=== PATIENT | male | born 1950 | race African-American/Black ===

== ENCOUNTER → 2017-02-09 | Outpatient (CLI) | payer BC, OTHER ==
[~2017-02-09] MED LIST: ALTACE10 MG PO; COREG6.25 MG PO; HYDROCODONE-AP1 EAC6 PO; K-DUR10 MEQ PO; LASIX 40 MG TAB40 M2 PO; NEURONTIN 300300 M1 PO; NOVOLOG100 UNIT/1 SQ; PRILOSEC20 MG PO; PROAIR HFA8.5 GM INH; SIMVASTATIN40 MG PO
== END ==
LOC: CAT 12:49
DX: R91.1 Solitary pulmonary nodule (principal); E27.9 Disorder of adrenal gland, unspecified; I31.3 Pericardial effusion (noninflammatory)

== ENCOUNTER → 2017-02-25 | Outpatient (CLI) | payer BC, OTHER | LOC: PET 01:44 | DX: I31.3 Pericardial effusion (noninflammatory) (principal); E27.9 Disorder of adrenal gland, unspecified; R91.1 Solitary pulmonary nodule ==

== ENCOUNTER 2017-03-17 06:45 | Day surgery (SDC) | payer BC, OTHER ==
[~2017-03-17] VITALS: Ht 175.3 cm; Wt 83.9 kg
--- NOTE | ~2017-03-17 | CNG ---
[place] [address] CYTO-NONGYN REPORT PROCEDURE Name: AYAD BRADLEY Room #: DEP [facility].#: [id number] Admission: 03/17/17 Date of : 54 Discharge: 03/18/17 Report #: [id number] Path Case #: [id number] CYTOPATHOLOGY REPORT COLLECTION DATE: 03/17/2017 RECEIVED DATE: 03/18/2017 SUBMITTING PHYS: Dr. Ag Caro OTHER PHYS: Dr. Anthony Hay CLINICAL HISTORY: 66 yr old 1.4 cm Left lung nodule superior segment LLL, 3-7 cm adrenal mass, Left hilar adenopathy, para tracheal adenopathy. See also [id number]. PROCEDURE: A. Multiple passes performed by Dr. Caro yielding fluid. Two H and E slides, and 40 mL from needle rinsed in formalin were submitted to the lab. B. Multiple passes performed by Dr. Caro yielding fluid. Two H and E slides, and 50 mL from needle rinsed in formalin were submitted to the lab. C. Multiple passes performed by Dr. Caro yielding fluid. Two H and E slides, and 45 mL from needle rinsed in formalin were submitted to the lab. SPECIMEN(S) RECEIVED: A.EBUS guided TBNA, lymph node 4R Pass 1 B.EBUS guided TBNA, lymph node 7R Pass 1 C.EBUS guided TBNA, lymph node 11L Pass 1 D. Bronchial brushings, JIMENA E. Bronchial brush rinse, JIMENA F.Bronchial wash, NOS * * * * * * * * * * * * FINAL DIAGNOSIS: A. Lymph node, 4R, EBUS guided TBNA: SCANT MARKEDLY ATYPICAL EPITHELIAL CELLS IDENTIFIED. -Lymphoid material identified compatible with aspiration of a lymph node. - Reactive bronchial epithelial cells present. B. Lymph node 7R, EBUS guided TBNA: SCANT MARKEDLY ATYPICAL EPITHELIAL CELLS IDENTIFIED. - Lymphoid material identified compatible with aspiration of a lymph node. - Reactive bronchial epithelial cells present. C. Lymph node 11L, EBUS guided TBNA: SCANT MARKEDLY ATYPICAL EPITHELIAL CELLS IDENTIFIED. - Lymphoid material identified compatible with aspiration of a lymph node. - Reactive bronchial epithelial cells present. D. Lung, JIMENA, Bronchial brushings: SHEETS OF MARKEDLY ATYPICAL EPITHELIAL CELLS IDENTIFIED. -Numerous [address] [place] [address] CYTO-NONGYN REPORT PROCEDURE Name: AYAD BRADLEY Room #: DEP [facility].#: [id number] Admission: 03/17/17 Date of : 54 Discharge: 03/18/17 Report #: [id number] Path Case #: [id number] sheets of benign bronchial epithelial cells present. E. Lung, JIMENA, Bronchial brush rinse: No malignant epithelial cells identified. -Few reactive bronchial epithelial cells and groups of lymphocytes. F. Lung, NOS, Bronchial wash: No malignant epithelial cells identified. - Few reactive bronchial epithelial cells and numerous alveolar macrophages. COMMENT: Groups of atypical cells identified show enlarged nuclei, cytomegaly, clumped chromatin and overlapping. The cells are; however, suspicious of a partially sampled malignancy. The differential diagnosis includes reactive changes in an inflammatory background. The scant nature of these cells precludes a definite diagnosis. [place]: Dr. Toby Roche. (Parts A, B, C and D only) The concurrent bronchial biopsy tissue [id number] showed benign bronchial tissue. Please see separate report for details. (IUV; 03/19/17) PATHOLOGIST: Marsha Waterman M.D. REPORT ELECTRONICALLY SIGNED BY: Marsha Waterman M.D. DATE/TIME: 03/19/2017 14:20 * * * * * * * * * * * * GROSS PATHOLOGY: A. EBUS guided TBNA, lymph node 4R Pass 1: The specimen is labeled "Ayad Bradley" and consists of two H and E slides. Forty mL of cloudy brown fluid in formalin from the needle rinse is also submitted and a cell block only was prepared from this material. B. EBUS guided TBNA, lymph node 7R Passes 1 : The specimen is labeled "Ayad Bradley" and consists of two H and E slides. Fifty mL of cloudy fluid in formalin from the needle rinse is also submitted and a cell block only was prepared from this material. C. EBUS guided TBNA, lymph node 11L Pass 1: The specimen is labeled "Ayad Bradley" and consists of two H and E slides. Forty-five mL of cloudy fluid in formalin from the needle rinse is also submitted and a cell block only was prepared from this material. D. Bronchial brushings, JIMENA: The specimen is labeled "Ayad Bardley" and consists of four fixed slides. E. Bronchial brush rinse, JIMENA: The specimen is labeled "Ayad Bradley" and consists of a brush tip in fixative. One ThinPrep slide was prepared. F. Bronchial wash, NOS: The specimen is submitted unfixed, labeled "Ayad Bradley". Received by the Cytology Department is five mL of cloudy pink fluid. One ThinPrep slide was prepared. (clt 03.18.2017) IMMEDIATE EVALUATION: [address] [address] CYTO-NONGYN REPORT PROCEDURE Name: AYAD BRADLEY Room #: DEP [facility].#: [id number] Admission: 03/17/17 Date of : 54 Discharge: 03/18/17 Report #: [id number] Path Case #: [id number] A. Lymph node 4R: Per Dr. Waterman: Few groups of atypical epithelial cells, rare lymphoid tangles, bronchial epithelial cells and cartilage. B. Lymph node 7R: Per Dr. Waterman: Groups of markedly atypical cells; few lymphoid tangles present. C. Lymph node 11L: Per Dr. Waterman: Markedly atypical cells and lymphoid tangles. Professional services performed under supervision of [facility] Enrobing Machine Operator at [address] [place], [place] [address] , [place] [address]. SHEET ROCK LAYER(S): HALINA Bradshaw([facility]) INITIAL CPT CODE(S): A; 49495, 71609, 19053 B; 97577, 63550, 47044 C; 40500, 48497, 82978 D; 53280 E; 74505 F; 56026 Professional services performed by [facility] at [place] [address], [place] [address] Technical services performed by [facility] at [address] [place] [address]., [address], [place] [address]. [address], [address] [place] [address] PHONE: [phone] DIRECTOR: Davide [place] M.D. * * * END OF REPORT * * *
--- NOTE | ~2017-03-17 | S ---
[facility] [place] [address] SURGICAL PATH RPT PROCEDURE Name: AYAD BRADLEY Room #: DEP [facility]..#: [id number] Admission: 03/17/17 Date of : 54 Discharge: 03/18/17 Report #: [id number] Path Case #: [id number] PATHOLOGY REPORT COLLECTION DATE: 03/17/2017 RECEIVED DATE: 03/18/2017 SUBMITTING PHYS: Dr. Ag Caro OTHER PHYS: Dr. Wilver Hay SPECIMEN(S) RECEIVED: A.Biopsy forceps JIMENA * * * * * * * * * * * * FINAL DIAGNOSIS: Lung, left upper lobe, bronchial biopsy: - Fragments of benign bronchial tissue with moderate dense chronic inflammation, as well as reactive changes. - No definite malignant epithelial cells identified. COMMENT: Co-review: Dr. Toby Roche. The concurrent EBUS guided FNA of the lymph nodes, as well as the bronchial brushings showed reactive atypical cells. Please refer to a separate report ([id number]). These findings were relayed to Dr. Ag Caro at approximately 10:40 am on 03/19/2017. (IUV:pit; 03/19/2017) PATHOLOGIST: Marsha Waterman M.D. REPORT ELECTRONICALLY SIGNED BY: Marsha Waterman M.D. DATE/TIME: 03/19/2017 15:21 * * * * * * * * * * * * GROSS PATHOLOGY: The specimen is received in formalin labeled "Ayad Bradley, bronch biopsy JIMENA". Received are multiple minute fragments of pale pitt soft tissue measuring 0.3 x 0.3 x 0.1 cm in aggregate dimensions. The specimen is filtered and entirely submitted in cassette A1. (CAA; 03/18/2017) CLINICAL HISTORY: Mass and lung INITIAL CPT CODE(S): A; [address] [facility] [address] [place] [address] SURGICAL PATH RPT PROCEDURE Name: AYAD BRADLEY Room #: DEP [facility].#: [id number] Admission: 03/17/17 Date of : 54 Discharge: 03/18/17 Report #: [id number] Path Case #: [id number] Professional services performed by [facility] at [facility] [address] [place] [address] Technical services performed by [facility] at [address] [place] [address], [facility] [address] [address]. [facility] [address] [place] [address] PHONE: [phone] DIRECTOR: Davide [place] M.D. * * * END OF REPORT * * *
--- NOTE | ~2017-03-17 | EKG ---
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: LINCOL[place] : 1950 Requested By: Ag Caro Order Number: [id number] MD: Juan Jose Galan Measurements Intervals [place] Rate: 90 P: 63 [place]: 138 QRS: 9 QRSD: 87 T: -20 QT: 355 QTc: 435 Interpretive Statements Sinus rhythm Abnormal R-wave progression, early transition Borderline repolarization abnormality Baseline wander in lead(s) V5,V6 Compared to ECG 01/05/2015 08:58:21 T-wave abnormality less prominent Early R-wave progression now noted Electronically Signed On 03-18-2017 8:21:32 CDT by Juan Jose Galan [email or web address] <ELECTRONICALLY SIGNED> By: Juan Jose Galan MD, [facility] 03/18/17 0821 1122 1122 Juan Jose Galan MD, [facility] /EPI
[2017-03-17 11:08] LABS: HEMATOCRIT 47.1 % (42.0-52.0); HEMOGLOBIN 15.4 gm/dL (14.0-18.0); MCH 29.1 pg (26.0-34.0); MCHC 32.6 g/dL (28.0-37.0); MCV 89.2 fL (80.0-100.0); RBC 5.29 mil/uL (4.50-6.00); RDW 13.6 % (10.5-14.5); WBC 7.2 thou/uL (4.0-11.0)
[2017-03-17 11:26] LABS: PROTIME 10.6 Seconds (9.3-11.4)
[2017-03-17] MEDS ORDERED: HUMALOG100 UNIT/2 (11:57)
[2017-03-17] MEDS ORDERED: SEROPHENE50 MG PO (11:58)
[2017-03-17] MEDS ORDERED: LYRICA 50 MG50 MG PO (11:59)
[2017-03-17] MEDS ORDERED: SPIRIVA18 MCG INH (12:00)
[2017-03-17 12:01] LABS: POTASSIUM 4.3 mmol/L (3.5-5.1)
[2017-03-17] MEDS ORDERED: PLAVIX 75 MG TA75 MG PO (12:01)
[2017-03-17 12:34] VITALS: BP 161/88
[2017-03-17 18:16] VITALS: BP 161/88
[2017-03-17 21:19] LABS: ABG SAMPLE TYPE ARTERIAL; BE(vivo) -0.3 mmol/L (-2 to +3); HCO3 23.9 mmol/L (22.0-26.0); LACTATE 1.57 mmol/L (0.5-2.0); O2(CT) 20.1 mL/dL (15.0-23.0); O2Hb 89.6 % (92.0-98.0); PCO2 37.8 mmHg (35.0-45.0); STICK SITE L.RADIAL; pH 7.418 (7.360-7.450); sO2 91.9 % (92.0-98.0)
[2017-03-17 22:04] LABS: HEMATOCRIT 47.9 % (42.0-52.0); HEMOGLOBIN 15.3 gm/dL (14.0-18.0); MCH 28.5 pg (26.0-34.0); MCHC 31.9 g/dL (28.0-37.0); MCV 89.2 fL (80.0-100.0); RBC 5.36 mil/uL (4.50-6.00); RDW 13.7 % (10.5-14.5); WBC 9.9 thou/uL (4.0-11.0)
[2017-03-17 22:26] LABS: ALBUMIN 3.6 g/dL (3.4-5.0); ALKALINE PHOSPHATASE 87 U/L (46-116); ANION GAP 9 mmol/L (7-16); BUN 12 mg/dL (7-18); CHLORIDE 101 mmol/L (98-107); CO2 26 mmol/L (21-32); DIRECT BILIRUBIN 0.2 mg/dL (<0.1-0.3); GLUCOSE 228 mg/dL (74-106); NT-PRO BRAIN NAT PEPTIDE 253 pg/mL (<300); POTASSIUM 4.1 mmol/L (3.5-5.1); SGOT 21 U/L (15-37); SGPT 23 U/L (30-65); SODIUM 136 mmol/L (136-145); TOTAL BILIRUBIN 0.5 mg/dL (<0.1-1.0); TOTAL PROTEIN 7.7 g/dL (6.4-8.2); TROPONIN-I < 0.04 ng/mL (<0.04-0.07)
[2017-03-17 23:58] VITALS: BP 152/87
[2017-03-18 03:21] VITALS: BP 163/48
[2017-03-18 07:16] LABS: HEMATOCRIT 45.8 % (42.0-52.0); HEMOGLOBIN 14.7 gm/dL (14.0-18.0); MCH 28.6 pg (26.0-34.0); MCHC 32.1 g/dL (28.0-37.0); RBC 5.14 mil/uL (4.50-6.00); RDW 13.6 % (10.5-14.5); WBC 9.4 thou/uL (4.0-11.0)
[2017-03-18 07:28] LABS: CREATININE 1.1 mg/dL (0.7-1.3); POTASSIUM 4.2 mmol/L (3.5-5.1)
[2017-03-18 07:30] VITALS: BP 180/88
[2017-03-18] MEDS ORDERED: FLOMAX0.4 MG PO (13:16)
[2017-03-18 13:17] VITALS: BP 161/88
[2017-03-18 14:15] VITALS: BP 161/88
[2017-03-18 15:23] VITALS: BP 161/88
[2017-03-20] MEDS ORDERED: FLOMAX0.4 MG PO (09:25)
[2017-03-20] MEDS ORDERED: CIPRO500 MG PO (11:15)
== END 2017-03-18 14:15 | disposition home or self-care (01) ==
LOC: OR 06:45 → TBA 06:45 → OR 08:39 → 4W 20:39 → OR 03-18 14:15
PROVIDERS: Internal Medicine Pulmonary Disease
DX: D14.32 Benign neoplasm of left bronchus and lung (principal); J42 Unspecified chronic bronchitis; J43.9 Emphysema, unspecified; I50.9 Heart failure, unspecified; I11.0 Hypertensive heart disease with heart failure; E11.319 Type 2 diabetes mellitus with unspecified diabetic retinopathy without macular edema; G47.33 Obstructive sleep apnea (adult) (pediatric); N40.0 Benign prostatic hyperplasia without lower urinary tract symptoms; K21.9 Gastro-esophageal reflux disease without esophagitis; E78.5 Hyperlipidemia, unspecified; Z90.49 Acquired absence of other specified parts of digestive tract; Z87.891 Personal history of nicotine dependence; Z98.890 Other specified postprocedural states; Z79.4 Long term (current) use of insulin; Z79.899 Other long term (current) drug therapy; Z88.8 Allergy status to other drugs, medicaments and biological substances
CPT/HCPCS: 50455; 62110; 62900; 70005

== ENCOUNTER 2017-03-25 13:31 | Inpatient (IN) | payer BC, OTHER ==
[~2017-03-25] VITALS: Ht 175.3 cm; Wt 81.6 kg
--- NOTE | ~2017-03-25 | HC ---
[facility] [place] [address] CONSULTATION Name: MORRISAYAD ABRAM Room #: 454-P [facility]..#: [id number] Admission: 03/25/17 Attend Phys: Tyrone Doyle MD Discharge: 03/26/17 Date of : 54 Report #: [id number] THIS REPORT FOR: //name// CC: Wilver [place] PRIMARY PHYSICIAN: Wilver Hay MD REFERRING PHYSICIAN: . REASON FOR REFERRAL: Dyspnea and chest pain. HISTORY OF PRESENT ILLNESS: The patient is a 66-year-old -Croatian male who is well known to this physician who presents to the emergency room with worsening chest pain and syncopal episode. A pulmonary consultation was requested regarding his known history of lung nodule along mediastinal adenopathy. In short summary, the patient was seen in approximately November 2016, for a lung nodule. CT chest performed at that time revealed a 1.4 cm left lower lobe lung nodule located at the superior basal segment of the left lower lobe. The CT chest also revealed a 3.7 cm right adrenal mass. I have requested a PET CAT scan, but this was denied by insurance at that time. A followup chest CT was then performed in January 2017. This chest CT showed a enlarging left lower lobe nodule, now measuring 1.7 cm in diameter along with mildly enlarged mediastinal adenopathy. The patient then underwent a PET scan performed on 02/25/2017, showing hypermetabolic activity involving the left lower lobe, SUV value of 3.15, hypermetabolic activity involving the left hilar adenopathy with an SUV value of 3.5, right hilar and paratracheal area showing a hypermetabolic activity with an SUV value of 2.9. The right adrenal gland did not show any hypermetabolic activity. His prior PFT showed an FEV1 of 1.63 liters of 62% predicted. The patient has smoked for most of his life and stopped smoking about a month ago after smoking about a pack a day. He has also lost about 6 pounds over the last 3 months. The patient then underwent EBUS about a week ago. Unfortunately, the biopsy was nondiagnostic. Extrinsic compression involving the left lower lobe and the left upper lobe was noted during the bronchoscopy. The patient was seen earlier in the office to follow up on the bronchoscopy and EBUS biopsy. Based on the finding, I have recommended proceeding with thoracic surgical consultation with possible mediastinoscopy and open lung biopsy, possible lobectomy depending on the pathology. [address] [address] CONSULTATION Name: AYAD MORRIS ABRAM Room #: 454-P [facility]#: [id number] Admission: 03/25/17 Attend Phys: Tyrone Doyle MD Discharge: 03/26/17 Date of : 54 Report #: [id number] The patient was home for a short while when he experienced worsening of his chest pains and had about 10 seconds of syncopal episode. He did not have any urinary or stool incontinence. Of note, the patient has had left-sided chest pain for the last week or so. This was felt to be related to his lung pathology. The chest pain is described as being dull like achy around his left chest radiating to the back along with muscle spasm. When he was brought to the emergency room, a CT chest angiogram was performed. CT chest angiogram revealed no evidence of pulmonary embolus or aortic dissection. There is a new moderate pericardial effusion. Left hilar mass again is noted along with a 1.5 cm nodule seen in the superior basal segment of the left lower lobe along with adrenal mass that has been previously noted. D-dimer was mildly elevated at 0.89. Currently, the patient states that he is much better. He was given aspirin and nitroglycerin in the ER. Again, he states that his chest discomfort has completely resolved. PAST MEDICAL HISTORY: Notable for as mentioned above. He has coronary artery disease and is followed by Dr. Anthony Forte, COPD as mentioned above, yntunnxx-[id number] impairment with a baseline FEV1 of 1.63 liters, diabetes mellitus type 2, hypercholesterolemia, hypertension, allergic rhinitis, peripheral artery disease, and peripheral neuropathy. PAST SURGICAL HISTORY: Includes appendectomy, prior eye surgery, lumbar laminectomy, prior neck surgery, and scrotal surgery in the past. ALLERGIES: OXYCODONE, which causes hallucinations, BACTRIM causes pruritus. HOME MEDICATIONS: Proventil 2 puffs p.r.n., Coreg 12.5 mg p.o. b.i.d., vitamin D supplements, Clomid 50 mg p.o. t.i.d., Plavix 75 mg p.o. daily, Lasix 40 mg once a day, hydrocodone 5/325 one tablet every 6 hours p.r.n., Prilosec 20 mg once a day, Klor-Con 10 mEq once a day, Lyrica 50 mg p.o. t.i.d., Altace 10 mg p.o. daily, and Zocor 40 mg once a day. FAMILY HISTORY: Remarkable for father with tuberculosis, he . Mother had heart disease. SOCIAL HISTORY: He is . Tobacco use as mentioned above. He has smoked most of his life 1 pack a day, having quit about a month ago. He denies any alcohol use. REVIEW OF SYSTEMS: As mentioned above, otherwise 10-point system review negative. [facility] [address] [place] [address] CONSULTATION Name: AYAD MORRIS ABRAM Room #: 454-P [facility]#: [id number] Admission: 03/25/17 Attend Phys: Tyrone Doyle MD Discharge: 03/26/17 Date of : 54 Report #: [id number] PHYSICAL EXAMINATION: GENERAL: He is awake, alert, in no distress at this time. VITAL SIGNS: Temperature is 98.8 degrees Fahrenheit, pulse is 83, respiratory rate is 20, blood pressure 156/84 mmHg, saturated 99% on 2 liters of O2. HEENT: Normocephalic, atraumatic. NECK: Supple without any lymphadenopathy or thyromegaly. CHEST: Breath sounds are good bilaterally with few scattered crackles in the left base. No wheezes. CARDIOVASCULAR: Normal S1, S2. There are no murmurs or gallop. There is no JVD. There is no carotid bruit. Pulses are 2+/4+ bilaterally. ABDOMEN: Soft, nontender, no organomegaly or masses felt. GENITOURINARY: Deferred. RECTAL: Deferred. EXTREMITIES: There is no edema, cyanosis, or clubbing. LABORATORY DATA: CT chest angiogram as mentioned above. Electrolytes are normal except for creatinine of 1.3, sodium is 138, potassium 5.0, chloride 105, CO2 of 27, BUN is 18. WBC is 5700, hemoglobin is 14.4. Troponin is pending. IMPRESSION: 1. Chest pain, near syncopal episode in this 66-year-old -Croat[place] male. Etiology is likely related to underlying lung pathology. Given his history of coronary artery disease, cannot rule out cardiac component. CT chest angiogram shows a new pericardial effusion. This may be likely cause for the patient's discomfort. 2. Enlarging left lower lobe lung nodule in the superior basal segment, mediastinal adenopathy with hypermetabolic activity by a PET scan as mentioned above. Initial EBUS was nondiagnostic. The patient will need further diagnostic workup. 3. Pericardiac effusion, felt to moderate by CT chest angiogram. Etiology is unclear, but need to consider malignant pericardial effusion due to his presumed bronchogenic carcinoma versus other processes such as pericarditis, other inflammatory causes. 4. Chronic obstructive pulmonary disease, mildly severe impairment, baseline FEV1 of 1.63 liters, 62% predicted. 5. Coronary artery disease, cardiology has been consulted. 6. Stable right adrenal mass without evidence of hypermetabolic activity. 7. Tobacco abuse, stop smoke about a month ago. 8. Renal insufficiency. This apparently is new. With recent contrast administration, we will need to follow renal function closely. IV fluids will be administered. 9. Diabetes mellitus type 2. 10. Hypertension. 11. Peripheral artery disease. 12. [place] [address] CONSULTATION Name: MORRISAYAD ABRAM Room #: 454-P [facility] .R.#: [id number] Admission: 03/25/17 Attend Phys: Tyrone Doyle MD Discharge: 03/26/17 Date of : 54 Report #: [id number] RECOMMENDATION: We will consult cardiology, regarding chest pain, pericardial effusion. Thoughts are considering pericardiocentesis to help with diagnosis. Note that his initial bronchoscopy along with EBUS was nondiagnostic. IV fluid will be started, follow renal function closely. Resume his home bronchodilator therapy. If cardiac workup was negative and pericardiocentesis is nondiagnostic, the patient will ultimately need thoracic surgery consultation for possible mediastinoscopy. If the mediastinoscopy is nondiagnostic, I think proceeding with lobectomy will be reasonable based on his pulmonary function test. Ultimately CT needle biopsy will be another option in this patient. DVT and GI prophylaxis will be addressed. Of note, the patient has been on Plavix, this will be on hold for possible procedures. Thank you for this consultation. <ELECTRONICALLY SIGNED> By: Nathanael Boyd MD 03/30/17 1418 1809 1926 Nathanael Boyd MD /nt
--- NOTE | ~2017-03-25 | HC ---
[facility] [place] [address] CONSULTATION Name: AYAD MORRIS Room #: 454-P [facility] ..#: [id number] Admission: 03/25/17 Attend Phys: Tyrone Doyle MD Discharge: Date of : 54 Report #: [id number] THIS REPORT FOR: //name// CC: Wilver Doyle DATE OF SERVICE: 03/25/2017 INDICATION: Chest pain. HISTORY OF PRESENT ILLNESS: This is a 66-year-old gentleman presenting with chest pains for the past several days. He describes a sharp ache on the left side of his chest, radiating towards the back. It seems to be exacerbated with laying down either in the supine or left lateral position. It improves when he sits up or stands up. It is also reproducible with deep inspiration. He also reports having dyspnea, unable to take a deep breath. He had an episode of syncope that apparently lasted for 10 seconds, witnessed by granddaughter. He does not recall passing out, but remembers feeling dyspneic and having chest discomfort when it happened. After undergoing evaluation by EMS services, he was given a nitroglycerin with relief of his discomfort. The patient denies any history of fever, chills, diarrhea or orthopnea. He was recently diagnosed with lung cancer and is currently undergoing further testing. PAST MEDICAL HISTORY: Cardiac catheterization in 2014 revealed a moderate stenosis in the LAD. Diagnosed with severe nonischemic cardiomyopathy. History of hypertension, hypercholesterolemia. History of peripheral vascular disease with peripheral angioplasty. Diabetes mellitus. COPD with chronic tobacco use and recently diagnosed with lung cancer. Chronic lower extremity edema. ALLERGIES: Include ACETAMINOPHEN, OXYCODONE, SULFA and TRIMETHOPRIM. MEDICATIONS: Include Plavix 75 mg daily, omeprazole once a day, Lasix 40 mg twice a day, Altace 10 mg daily, Coreg 12.5 mg twice a day, Flomax, insulin. SOCIAL HISTORY: Positive for tobacco use. FAMILY HISTORY: Negative for premature CAD. REVIEW OF SYSTEMS: A full 10-point review of systems was performed. Only the pertinent positives and negatives as described in the HPI. PHYSICAL EXAMINATION: VITAL SIGNS: Blood pressure is 155/70, heart rate is 84 beats per minute. GENERAL APPEARANCE: This is a well-developed, well-nourished male in no acute respiratory distress. HEAD AND EYES: Normocephalic. Sclerae are anicteric. [facility] [address] [place] [address] CONSULTATION Name: AYAD MORRIS Room #: 454-P [facility] IN ..#: [id number] Admission: 03/25/17 Attend Phys: Tyrone Doyle MD Discharge: Date of : 54 Report #: [id number] ENT: Oral mucosa moist. NECK: Supple. LUNGS: Diminished breath sounds at the bases. CARDIAC: Regular rate and rhythm, S1, S2 positive. ABDOMEN: Soft, nontender. EXTREMITIES: No major joint deformities. No edema. NEUROLOGIC: Alert and oriented times 3. ECG reveals sinus rhythm, nonspecific ST segment - T wave abnormalities. LABORATORY VALUES: White count is 5.7, hemoglobin is 14.4, sodium is 138, creatinine is 1.3. First troponin is negative. CT of the chest is negative for PE, moderate pericardial effusion is noted. ASSESSMENT AND PLAN: 1. Chest pain, by his history, the etiology is possibly related to pericarditis or pleuritis. We will need to evaluate serial troponin levels. 2. Pericardial effusion, noted on CT of the chest. We will need an echo to assess the severity. This will be consistent with a diagnosis of pericarditis. 3. Lung cancer, continue undergoing evaluation. 4. Hypertension, resume cardiac medications including Coreg and carvedilol. 5. Hypercholesterolemia, continue with statin therapy. 6. Edema, continue with Lasix therapy. 7. Chronic obstructive pulmonary disease, as per Pulmonary. Thank you for allowing me to participate in the care of your patient. <ELECTRONICALLY SIGNED> By: Anthony Forte MD 03/26/17 0932 1805 1836 Anthony Forte MD /nt
--- NOTE | ~2017-03-25 | EKG ---
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 Relations Manager: LESLIE : 1950 Requested By: Marisol Sepulveda Order Number: [id number] MD: Juan Jose Galan Measurements Intervals [place] Rate: 84 P: 61 [place]: 135 QRS: -5 QRSD: 83 T: -41 QT: 359 QTc: 425 Interpretive Statements Sinus rhythm Borderline repolarization abnormality Minimal ST elevation, anterior leads Compared to ECG 03/17/2017 11:22:28 Lateral T wave abnormality is now present Electronically Signed On 03-25-2017 17:20:58 CDT by Juan Jose Galan [email or web address] <ELECTRONICALLY SIGNED> By: Juan Jose Galan MD, [facility] 03/25/17 1720 1333 1333 Juan Jose Galan MD, [facility] /EPI
[~2017-03-25 13:31] MED LIST changes: +CIPRO500 MG PO; +FLOMAX0.4 MG PO; +HUMALOG100 UNIT/2; +LYRICA 50 MG50 MG PO; +PLAVIX 75 MG TA75 MG PO; +SEROPHENE50 MG PO; +SPIRIVA18 MCG INH
[2017-03-25 13:33] VITALS: BP 144/85
[2017-03-25 14:10] LABS: ABSOLUTE NEUTROPHILS 2.9 thou/uL (1.4-8.2); BASOPHILS 0.9 % (0.0-2.0); EOSINOPHILS 4.4 % (0.0-3.0); HEMATOCRIT 44.4 % (42.0-52.0); HEMOGLOBIN 14.4 gm/dL (14.0-18.0); LYMPHOCYTES 36.1 % (24.0-44.0); MCHC 32.3 g/dL (28.0-37.0); MCV 89.7 fL (80.0-100.0); MONOCYTES 7.5 % (1.0-8.0); PLATELET COUNT 311 thou/uL (150-400); POLYS 51.1 % (36.0-66.0); RBC 4.95 mil/uL (4.50-6.00); RDW 13.7 % (10.5-14.5); WBC 5.7 thou/uL (4.0-11.0)
[2017-03-25 14:11] LABS: MANUAL DIFF NO
[2017-03-25 14:13] LABS: ANION GAP 6 mmol/L (7-16); BUN 18 mg/dL (7-18); CALCIUM 9.2 mg/dL (8.5-10.1); CHLORIDE 105 mmol/L (98-107); CO2 27 mmol/L (21-32); CREATININE 1.3 mg/dL (0.7-1.3); GLUCOSE 266 mg/dL (74-106); SODIUM 138 mmol/L (136-145)
[2017-03-25 14:22] LABS: TROPONIN-I < 0.04 ng/mL (<0.04-0.07)
[2017-03-25 15:21] VITALS: BP 156/84
[2017-03-25 15:24] VITALS: BP 156/84
[2017-03-25 15:51] VITALS: BP 177/85
[2017-03-25 20:19] LABS: CK-MB MASS 1.3 ng/mL (<0.5-3.6); TROPONIN-I < 0.04 ng/mL (<0.04-0.07)
[2017-03-25 23:27] VITALS: BP 164/92
[2017-03-26 01:56] LABS: HEMATOCRIT 44.1 % (42.0-52.0); HEMOGLOBIN 14.3 gm/dL (14.0-18.0); MCH 28.8 pg (26.0-34.0); MCHC 32.5 g/dL (28.0-37.0); MCV 88.6 fL (80.0-100.0); RBC 4.98 mil/uL (4.50-6.00); RDW 13.9 % (10.5-14.5); WBC 6.7 thou/uL (4.0-11.0)
[2017-03-26 02:11] LABS: CHOLESTEROL 132 mg/dL (<200); CK-MB MASS 1.1 ng/mL (<0.5-3.6); HDL CHOLESTEROL 38 mg/dL (>40); LDL CHOLESTEROL 72 mg/dL (<100); SERUM ASSESSMENT Clear; TC:HDL 3.5 Ratio (Not establshd); TRIGLYCERIDE 114 mg/dL (<150); TROPONIN-I < 0.04 ng/mL (<0.04-0.07); VLDL 23 mg/dL (<40)
[2017-03-26 02:17] LABS: CALCIUM 8.8 mg/dL (8.5-10.1); CREATININE 1.2 mg/dL (0.7-1.3); POTASSIUM 4.1 mmol/L (3.5-5.1)
[2017-03-26 04:03] VITALS: BP 154/89
[2017-03-26 07:28] VITALS: BP 196/94
[2017-03-26 08:25] LABS: TROPONIN-I < 0.04 ng/mL (<0.04-0.07)
[2017-03-26 12:09] VITALS: BP 155/83
[2017-03-26 15:51] VITALS: BP 155/83
== END 2017-03-26 16:45 | disposition home or self-care (01) | DRG 315 ==
LOC: ER 13:31 → 4W 15:02 → EROBS 15:02 → 3N 16:07 → 4W 20:35
PROVIDERS: Emergency Medicine; Internal Medicine Pulmonary Disease; Nurse Practitioner
DX: I31.3 Pericardial effusion (noninflammatory) (principal); I42.9 Cardiomyopathy, unspecified; N17.9 Acute kidney failure, unspecified; C34.90 Malignant neoplasm of unspecified part of unspecified bronchus or lung; R07.9 Chest pain, unspecified; J45.909 Unspecified asthma, uncomplicated; E78.5 Hyperlipidemia, unspecified; I73.9 Peripheral vascular disease, unspecified; E78.00 Pure hypercholesterolemia, unspecified; J44.9 Chronic obstructive pulmonary disease, unspecified; R59.0 Localized enlarged lymph nodes; I10 Essential (primary) hypertension; E11.42 Type 2 diabetes mellitus with diabetic polyneuropathy; F17.210 Nicotine dependence, cigarettes, uncomplicated; E11.319 Type 2 diabetes mellitus with unspecified diabetic retinopathy without macular edema; Z79.899 Other long term (current) drug therapy; Z79.4 Long term (current) use of insulin; Z88.2 Allergy status to sulfonamides; Z88.6 Allergy status to analgesic agent; Z83.3 Family history of diabetes mellitus; Z82.49 Family history of ischemic heart disease and other diseases of the circulatory system; Z90.49 Acquired absence of other specified parts of digestive tract; Z98.61 Coronary angioplasty status
CPT/HCPCS: 10047

== ENCOUNTER → 2017-03-31 | Outpatient (CLI) | payer BC, OTHER ==
[~2017-03-31] VITALS: Ht 175.3 cm; Wt 81.6 kg
[2017-03-31] VITALS (9 sets, daily range): BP systolic 134–158; BP diastolic 77–110
--- NOTE | ~2017-03-31 | S ---
[facility] [place] [address] SURGICAL PATH RPT PROCEDURE Name: AYAD BRADLEY Room #: REG [facility]#: [id number] Admission: 03/31/17 Date of : 54 Discharge: Report #: [id number] Path Case #: [id number] PATHOLOGY REPORT COLLECTION DATE: 03/31/2017 RECEIVED DATE: 03/31/2017 SUBMITTING PHYS: OTHER PHYS: Dr. Nathanael Boyd SPECIMEN(S) RECEIVED: A.Right adrenal bx * * * * * * * * * * * * FINAL DIAGNOSIS: Adrenal mass, right, core needle biopsy: - Pheochromocytoma. (please see comment) COMMENT: The findings in this case were relayed to Latanya at Dr. Nathanael Boyd's office on 04/06/17. This case has also been reviewed by Dr. Reuben Armstrong who agrees with the diagnosis. (FRANCISCA:; 04/02/2017) PATHOLOGIST: Sekou Don M.D. REPORT ELECTRONICALLY SIGNED BY: Sekou Don M.D. DATE/TIME: 04/06/2017 08:59 * * * * * * * * * * * * MICROSCOPIC DESCRIPTION: Sections show a small amount of unremarkable adrenal cortical tissue and a tumor which is composed of a proliferation of small nests of tumor cells which have a finely granular basophilic cytoplasm. No definite mitotic figures are seen. Controlled immunoperoxidase stains are performed and show the following results in the tumor cells: Synaptophysin: strongly positive Chromogranin: strongly positive LACEY: negative Calretinin: positive only focally in adjacent adrenal cortical tissue MART-1: positive only focally in adjacent adrenal cortical tissue TAG72: negative S-100: positive in most of the tumor cells GROSS PATHOLOGY: [facility] [address] [place] [address] SURGICAL PATH RPT PROCEDURE Name: AYAD BRADLEY Room #: REG [facility].#: [id number] Admission: 03/31/17 Date of : 54 Discharge: Report #: [id number] Path Case #: [id number] Received in formalin labeled "Ayad Bradley, CT biopsy right adrenal," are three distinct needle cores of pitt soft tissue ranging from 0.6 to 1.5 cm in length, which are submitted entirely in cassette A1. (CAA; 04/01/2017) CLINICAL HISTORY: Adrenal mass INITIAL CPT CODE(S): A; 43261, 06253, 21017, 65596, 28396, 50588, 66278, 92924 Professional services performed by [facility] at [facility] [address] [facility], [place] [address] Technical services performed by [facility] at [address] [place] [address], [address], [place] [address]. Joon Carroll [facility] [address] [place] [address] PHONE: [phone] DIRECTOR: Davide Jackson M.D. * * * END OF REPORT * * *
[2017-03-31 08:16] LABS: CREATININE 1.2 mg/dL (0.7-1.3)
[2017-03-31 08:56] LABS: HEMATOCRIT 46.5 % (42.0-52.0); HEMOGLOBIN 14.9 gm/dL (14.0-18.0); MCH 28.8 pg (26.0-34.0); MCV 89.8 fL (80.0-100.0); RBC 5.18 mil/uL (4.50-6.00); RDW 13.8 % (10.5-14.5)
[2017-03-31 09:06] LABS: PROTIME 10.4 Seconds (9.3-11.4)
== END | disposition home or self-care (01) ==
LOC: CAT 07:25 → LAB 10:58 → CAT 11:00
PROVIDERS: Internal Medicine Pulmonary Disease; Radiology Vascular & Interventional Radiology
DX: D35.01 Benign neoplasm of right adrenal gland (principal)

== ENCOUNTER → 2017-04-06 | Outpatient (CLI) | payer BC, OTHER ==
[2017-04-06 07:49] LABS: CREATININE 1.4 mg/dL (0.7-1.3)
== END ==
LOC: MRI 06:00
PROVIDERS: Internal Medicine Pulmonary Disease
DX: R90.82 White matter disease, unspecified (principal); R91.1 Solitary pulmonary nodule; R59.0 Localized enlarged lymph nodes

== ENCOUNTER 2017-05-19 09:05 | Inpatient (IN) | payer BC, OTHER ==
[~2017-05-19] VITALS: Ht 175.3 cm; Wt 83.2 kg
--- NOTE | ~2017-05-19 | HC ---
[facility] [place] [address] CONSULTATION Name: MORRISAYAD ABRAM Room #: 208-P [facility] IN ..#: [id number] Admission: 05/19/17 Attend Phys: Doc Sim MD Discharge: 05/20/17 Date of : 54 Report #: [id number] THIS REPORT FOR: //name// CC: Wilver Boyd DATE OF SERVICE: 05/20/2017 HISTORY OF PRESENT ILLNESS: A 66-year-old black male with a recently diagnosed pheochromocytoma. Consultation was attempted yesterday, but the patient was out of his room on [address] procedure. Historically, the patient has a variety of medical problems including lung cancer, recent pneumonia, chronic cardiopulmonary disease and significant hypertension. In spite of multiple medications, the patient was discovered to have a right adrenal mass and underwent a biopsy under CT guidance, the pathology of which was found to indicate pheochromocytoma. It appears that this had not been considered prior to the biopsy as the biopsy would not have been attempted without pharmacologic preparation. Since the patient was not prepared, he did have some complications with anesthesia and stress of the procedure, necessitating several days of hospitalization. The patient is currently admitted with pneumonia and is undergoing evaluation to determine most appropriate treatment for what appears to be a right adrenal pheochromocytoma. Current medications at the time of consultation include doxazosin, lisinopril, clopidogrel, tamsulosin, furosemide, pantoprazole, gabapentin, enoxaparin, potassium, carvedilol, atorvastatin, insulin for hyperglycemia, levofloxacin, and possibly other medication. Historically, the patient denies clinical signs of a pheochromocytoma. Other than the hypertension, he has had no episodes of sweats, flushing, anxiety, etc. OBJECTIVE: LABORATORY DATA: Sodium 135, potassium 4, chloride 100, CO2 26, BUN 16, creatinine 0.9, random glucose 195, AST 20, bilirubin 0.3, calcium 9.1, alkaline phosphatase 115, SGPT 37, total protein 7.3, albumin 3.1. Prior serum and urine metanephrines from [facility] are apparently not available at this time. When the patient was absent yesterday, I ordered urinary fractionated metanephrines, which are currently being collected on this admission. CT results and apparently also PET scan showed a several centimeter right adrenal mass prior to the biopsy. [address] [address] CONSULTATION Name: AYAD MORRIS ABRAM Room #: 208-P [facility] IN [facility].#: [id number] Admission: 05/19/17 Attend Phys: Doc Sim MD Discharge: 05/20/17 Date of : 54 Report #: [id number] PHYSICAL EXAMINATION: GENERAL: Well-nourished, well-developed 66-year-old black male in no acute distress. The patient is alert and oriented x 3. VITAL SIGNS: The patient was reported to be 5 feet 9 inches, 175 pounds. He is afebrile, heart rate 100 and regular, blood pressure 180/110. He is on oxygen. HEENT: PERRL. NECK: Supple without masses, tenderness or thyromegaly. CHEST: Shows scattered rhonchi, clearing with cough. HEART: Regular rhythm without murmurs, rubs or gallops. ABDOMEN: Benign. EXTREMITIES: No edema, cyanosis or clubbing. Peripheral pulses 2+ and equal bilaterally. NEUROLOGIC: Grossly intact. ASSESSMENT: Right adrenal adenoma with biopsy evidence of pheochromocytoma. Other than persistent hypertension, the patient has no obvious clinical signs for this disorder, but does have the significant right adrenal mass. Pharmacologic testing has apparently been ordered in the past, but results are not available at this time. Meanwhile, the patient is potentially a poor surgical candidate depending on his cardiopulmonary status. He did have complications with the recent biopsy, but unfortunately had not been pharmacologically prepped for that procedure with alpha and then beta blockade. He is apparently also being considered for possible x-ray therapy as a treatment for his adrenal tumor. PLAN: 1. Currently, awaiting results of laboratory studies on urine and blood, which most likely will confirm abnormalities consistent with pheochromocytoma. 2. If that is the case and the patient is an adequate surgical candidate and procedure can be done by endoscopy, I would favor endoscopic right adrenalectomy rather than radiotherapy as it is much more rapid and precise and does not have the potential for damage to surrounding tissues. This would of course depend on the patient's cardiopulmonary status, the competency and experience of the endoscopic surgeon, and the need to adequately prepare the patient pharmacologically for 2-3 weeks prior to attempting the procedure. 3. Further information may be obtained by pending lab studies both from [facility] and this admission. 4. If the patient is declared a candidate for surgery, I would expect that the most appropriate facility to prepare him pharmacologically and do the surgical procedure would probably be the [facility]. <ELECTRONICALLY SIGNED> By: Wilver Arboleda MD 05/21/17 0832 1155 1245 Wilver Arboleda MD /nt
--- NOTE | ~2017-05-19 | HC ---
[facility] [place] [address] CONSULTATION Name: AYAD MORRIS Room #: 208-P ADM IN M.R.#: [id number] Admission: 05/19/17 Attend Phys: Doc Sim MD Discharge: Date of : 54 Report #: [id number] THIS REPORT FOR: //name// CC: Wilver Huffman Ko DATE OF SERVICE: 05/19/2017 PRIMARY CARE PHYSICIAN: Wilver Hay MD. REFERRING PHYSICIAN: Doc Sim MD. REASON FOR REFERRAL: Dyspnea. HISTORY OF PRESENT ILLNESS: The patient is a 66-year-old -[place] male who is well known to this physician. He has been admitted for increasing dyspnea, possible pneumonia. In short summary, he was seen initially approximately in 10/2016 for a lung nodule. The chest CT at that time revealed a 1.4-cm left lower lobe lung nodule at the proximal superior basal segment. A 3.7-cm right adrenal mass was performed. A PET scan was requested, but denied by insurance, rather a followup chest CT was recommended. A followup chest CT was performed in 01/2017, which showed that the left lower lobe lung nodule has enlarged in size, measured 1.7 cm in diameter along with mediastinal adenopathy. A PET scan was then performed on 07/28/2017. This showed hypermetabolic activity involving the left lower lobe lung nodule with an SUV value of 3.15. Moderate hypermetabolic activity was also noted in the left hilum area with an SUV value of 3.5. The right hilum had mild hypermetabolic activity of SUV value of 2.9. The adrenal gland did not show any hypermetabolic activity. He then underwent an EBUS. This was nondiagnostic. He was then referred to thoracic surgery. Upon thoracic surgical consultation, it was recommended that the patient be evaluated for his right adrenal mass. A CT needle biopsy was performed showing pheochromocytoma. Of note, the patient did have hypertensive crisis following EBUS. The patient was then referred to surgery for surgery. He was then referred for possible CyberKnife therapy for his pheochromocytoma. At this time, they are still in the process of evaluation and possible treatment. [address] [address] CONSULTATION Name: AYAD MORRIS Room #: 208-P [facility] IN .R.#: [id number] Admission: 05/19/17 Attend Phys: Doc Sim MD Discharge: Date of : 54 Report #: [id number] In the meantime, he was seen by endocrinology who had recommended various perioperative treatment. However, this senior consultant did not do inpatient consultation. His prior spirometry and PFTs revealed moderately reduced flows without obvious airflow obstruction. The patient also had gradual weight loss since the early part of this year. The patient smokes about a half a pack a day. He presents to the office today with progressive dyspnea, chest discomfort. He has had chest discomfort for some time. A chest x-ray performed today now shows mild interstitial infiltrates in the left lung field, a prominent left hilum, small left-sided pleural effusion, right lung field is clear. The patient has been admitted for possible pneumonia. PAST MEDICAL HISTORY: As mentioned above. There is a questionable history of asthma, although PFTs in the past shows no evidence of COPD, tobacco abuse, diabetes mellitus type 2, hypercholesterolemia, hypertension, multiple seasonal allergies, peripheral artery disease, and peripheral neuropathy. PAST SURGICAL HISTORY: Includes appendectomy; eye surgery in 1959; lumbar laminectomy in 1988, 1990, 1992, and 1998; prior neck surgery; and prior testicular surgery. ALLERGIES: OXYCODONE, reaction is hallucination. PERCOCET, similar reaction. SULFA causes pruritus. CURRENT MEDICATIONS: Include Proventil 2 puffs p.r.n., Coreg 12.5 mg once a day, multivitamin supplements, Clomid 50 mg p.o. t.i.d., Plavix 75 mg p.o. daily, Lasix 40 mg once a day, hydrocodone 1 tablet q.6 hours p.r.n., insulin supplements, Prilosec 20 mg once a day, potassium chloride 10 mEq once a day, Lyrica 50 mg p.o. t.i.d., Altace 10 mg once a day, and Zocor 40 mg once a day. FAMILY HISTORY: Notable for tuberculosis in the father. Mother with heart disease and diabetes. SOCIAL HISTORY: The patient is , continues to smoke less than a pack a day for most of his life. He denies any alcohol use. REVIEW OF SYSTEMS: As mentioned above, notable for recent weight loss. Otherwise, no nausea, vomiting, or diarrhea. A 10-point system review negative. [address] [address] CONSULTATION Name: AYAD MORRIS Room #: 208-P [facility] IN M.R.#: [id number] Admission: 05/19/17 Attend Phys: Doc Sim MD Discharge: Date of : 54 Report #: [id number] PHYSICAL EXAMINATION: GENERAL: He is awake, alert, in moderate distress. VITAL SIGNS: Temperature is 97.8 degrees Fahrenheit, pulse is 95, respiratory rate is 18, blood pressure 146/87 mmHg, and saturation 100%. HEENT: Normocephalic and atraumatic. NECK: Supple without any lymphadenopathy or thyromegaly. CHEST: Breath sounds are decreased in the left lung field. A few scattered crackles. No wheezes. Right lung field is clear. CARDIOVASCULAR: Normal S1, S2. No murmurs or gallop. There is no JVD. There is no carotid bruit. Pulses are 2+/4+ bilaterally. ABDOMEN: Soft and nontender. No organomegaly or masses felt. GENITOURINARY: Deferred. RECTAL: Deferred. EXTREMITIES: There is no edema, cyanosis, or clubbing. LABORATORY DATA: Chest x-ray as mentioned above, showing increased interstitial changes involving the left lung field, a prominent left hilum, small left-sided pleural effusion, right lung field is clear. These changes are new from prior chest x-ray performed a few months ago. Electrolytes are normal, creatinine 1.0. Liver function profile is normal. WBC 6300, hemoglobin is 12.7, and platelets are normal. Arterial blood gas revealed pH 7.40, pCO2 36, and pO2 95. Albumin 3.1. IMPRESSION: 1. Progressive dyspnea in this 66-year-old -[place] male with a left lower lobe lung nodule, mediastinal adenopathy along with pheochromocytoma. Chest x-ray now shows increased interstitial infiltrates seen in the left lung field, small left-sided pleural effusion. Pneumonia is possible, although progression of underlying lung pathology is likely. 2. Chronic obstructive pulmonary disease, felt to be mild despite PFTs in the past showing no evidence of airflow obstruction. 3. Left lower lobe lung mass, initially noted around 10/2016 with progression in size, measuring 1.7 cm in diameter, a left lower lobe lung nodule at the superior basal segment along with mediastinal adenopathy. PET scan as mentioned above. EBUS was nondiagnostic. He will need mediastinoscopy once his pheochromocytoma has been treated. 4. Pheochromocytoma, right adrenal mass via a CT needle biopsy, please see comments above. 5. Tobacco abuse. 6. Hypertension. 7. Hypercholesterolemia. 8. Allergic rhinitis. 9. Peripheral artery disease. 10. Peripheral neuropathy. 11. Coronary artery disease. [facility] [address] [place] [address] CONSULTATION Name: AYAD MORRIS Room #: 208-P [facility] IN ..#: [id number] Admission: 05/19/17 Attend Phys: Doc Sim MD Discharge: Date of : 54 Report #: [id number] RECOMMENDATION AND DISCUSSION: We would treat for presumed pneumonia. We will consider diagnostic thoracentesis involving the left chest. Bronchodilators and low-dose corticosteroids is recommended. Broad-spectrum antibiotics will be initiated. In terms of his workup and treatment for his pheochromocytoma along with still yet to be diagnosed lung nodule and mediastinal adenopathy, I would recommend that we expedite this process. It has been a few months now. Since there has been moderate delay in treating this patient, I believe a tertiary center will be very helpful in trying to expedite treatment and diagnosis of his pheochromocytoma and lung pathology. This will be discussed further with the patient along with Dr. Sim. Thank you for this consultation. By: [id number] ELIZABETH Soto /rhea
[2017-05-19 15:07] LABS: HEMOGLOBIN 12.7 gm/dL (14.0-18.0); MCH 28.1 pg (26.0-34.0); MCHC 31.7 g/dL (28.0-37.0); MCV 88.8 fL (80.0-100.0); RBC 4.51 mil/uL (4.50-6.00); WBC 6.3 thou/uL (4.0-11.0)
[2017-05-19 15:16] LABS: CALCIUM 8.9 mg/dL (8.5-10.1); POTASSIUM 3.9 mmol/L (3.5-5.1)
[2017-05-19 15:22] LABS: ALBUMIN 3.1 g/dL (3.4-5.0); TOTAL BILIRUBIN 0.3 mg/dL (<0.1-1.0); TOTAL PROTEIN 7.3 g/dL (6.4-8.2)
[2017-05-19 15:37] VITALS: BP 185/107
[2017-05-19 16:32] LABS: ABG SAMPLE TYPE ARTERIAL; BE(vivo) -1.8 mmol/L (-2 to +3); HCO3 22.3 mmol/L (22.0-26.0); LACTATE 1.02 mmol/L (0.5-2.0); O2(CT) 18.7 mL/dL (15.0-23.0); PCO2 36.4 mmHg (35.0-45.0); PO2 95.4 mmHg (80.0-100.0); pH 7.406 (7.360-7.450); sO2 97.4 % (92.0-98.0); tCO2 23.5 mmol/L (24.0-30.0)
[2017-05-19 16:33] LABS: STICK SITE L.RADIAL
[2017-05-19 16:34] LABS: ABG COMMENT NO COMPLICATIONS
[2017-05-19 18:31] VITALS: BP 173/103
[2017-05-19 19:59] VITALS: BP 175/100
[2017-05-19 23:50] VITALS: BP 167/93
[2017-05-20 04:30] VITALS: BP 182/110
[2017-05-20 06:03] LABS: HEMATOCRIT 40.9 % (42.0-52.0); HEMOGLOBIN 13.2 gm/dL (14.0-18.0); MCH 28.5 pg (26.0-34.0); MCHC 32.4 g/dL (28.0-37.0); RBC 4.64 mil/uL (4.50-6.00); WBC 8.3 thou/uL (4.0-11.0)
[2017-05-20 06:24] LABS: CALCIUM 9.1 mg/dL (8.5-10.1); CREATININE 0.9 mg/dL (0.7-1.3)
== END 2017-05-20 18:45 | disposition short-term general hospital (02) | DRG 643 ==
LOC: RAD 09:05 → 2N 11:16
PROVIDERS: Internal Medicine; Internal Medicine Pulmonary Disease
DX: D35.01 Benign neoplasm of right adrenal gland (principal); J18.9 Pneumonia, unspecified organism; F17.210 Nicotine dependence, cigarettes, uncomplicated; I10 Essential (primary) hypertension; E78.00 Pure hypercholesterolemia, unspecified; J30.9 Allergic rhinitis, unspecified; I25.10 Atherosclerotic heart disease of native coronary artery without angina pectoris; E10.51 Type 1 diabetes mellitus with diabetic peripheral angiopathy without gangrene; N40.0 Benign prostatic hyperplasia without lower urinary tract symptoms; E10.319 Type 1 diabetes mellitus with unspecified diabetic retinopathy without macular edema; E10.40 Type 1 diabetes mellitus with diabetic neuropathy, unspecified; Z79.02 Long term (current) use of antithrombotics/antiplatelets; Z79.4 Long term (current) use of insulin; Z79.899 Other long term (current) drug therapy; Z85.118 Personal history of other malignant neoplasm of bronchus and lung; Z90.49 Acquired absence of other specified parts of digestive tract; Z88.1 Allergy status to other antibiotic agents; Z88.2 Allergy status to sulfonamides; Z88.8 Allergy status to other drugs, medicaments and biological substances; Z83.3 Family history of diabetes mellitus; Z82.49 Family history of ischemic heart disease and other diseases of the circulatory system
CPT/HCPCS: 10797

== ENCOUNTER → 2017-09-14 | Emergency (ER) | payer BC, OTHER ==
[~2017-09-14] VITALS: Ht 175.3 cm; Wt 77.1 kg
[~2017-09-14] MED LIST changes: +AMBIEN 5 MG TABL5 M1 PO; +ANORO ELLIPTA1 EACH NASAL; +MIDODRINE HCL 55 M1 PO; +OMEPRAZOLE 20 M20 M1 PO; +PLAVIX 75 MG TA75 M1 PO; +STIOLTO RESPIMAT4 GM NASAL; +VENTOLIN HFA 1818 GM INH
--- NOTE | ~2017-09-14 | EKG ---
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 : 1950 Requested By: Jensen Sanchez Order Number: [id number] MD: Jose Juan Perez Measurements Intervals [place] Rate: 95 P: 55 SC: 127 QRS: 18 QRSD: 77 T: 58 QT: 322 QTc: 405 Interpretive Statements Sinus rhythm Borderline T abnormalities, lateral leads Compared to ECG 03/25/2017 13:33:01 T-wave abnormality now present ST (T wave) deviation no longer present Electronically Signed On 09-14-2017 15:43:50 FAMILY PRACTITIONER by Jose Juan Perez [email or web address] <ELECTRONICALLY SIGNED> By: Jose Juan Perez MD 09/14/17 1543 8 8 Jose Juan Perez MD /MICHELET
--- NOTE | ~2017-09-14 | HC ---
[facility] [place] [address] CONSULTATION Name: AYAD MORRIS Room #: REG Sandra#: [id number] Admission: 09/14/17 Attend Phys: Discharge: Date of : 54 Report #: [id number] THIS REPORT FOR: //name// CC: Wilver Sanchez DATE OF SERVICE: 09/14/2017 HISTORY OF PRESENT ILLNESS: This is a 66-year-old male patient who was evaluated by me in the emergency room as a stroke protocol. This patient was discussed with emergency room physician multiple times. The patient was discussed with the stroke nurse. The patient's provides some history. Dr. Sanchez from emergency room initially evaluated this patient for what looks like a right hemiplegia and aphasia. It was acute onset. thinks it happened around 7:30 this morning. It was evaluated by emergency room physician first who did a noncontrast CT of the head, which was unremarkable. Subsequently, a neurological consultation was requested and I talked to the family and evaluated this patient, this patient is aphasic and he is densely right hemiplegic. Further history is not possible because he is not able to say anything. REVIEW OF SYSTEMS: Indicate that this patient has a stage IV lung cancer. He goes to [facility] for all his cares. I went over all the contraindications for TPA in this patient and the tells me that he does not have any contraindication. The emergency room physician, Dr. Sanchez has already gone over those contraindications and already ordered TPA in this patient. He has a history of atrial fibrillation. indicates he used to be on Coumadin, but he has not received any Coumadin since May. Coumadin was discontinued in relation to his surgery on his adrenal gland. Record indicates that he also has cardiomyopathy. Family says that he used to be hypertensive, but he is not hypertensive anymore after his adrenal surgery, he had back surgeries, but that was long time ago. indicates that he did not have any surgery in the eye for bleeding, etc. There is some mentioned of something to do with retinopathy, but I asked the multiple times and she indicate that he did not have anything bleeding in the eye, etc. This was his relevant 14-point review of system, which is very extensive. PAST MEDICAL HISTORY: Positive for cancer in this patient. FAMILY HISTORY: Negative for any early age stroke. SOCIAL HISTORY: He does not drink any alcohol. PHYSICAL EXAMINATION: His examination was limited, it was carried out multiple times, but because of time constraints and because of his aphasia, it was very limited. This patient has no verbal output. He has obvious right facial palsy. He did not move the right side, but he did move the left side. Further [facility] [address] [place] [address] CONSULTATION Name: AYAD MORRIS Room #: REG [facility] Flores#: [id number] Admission: 09/14/17 Attend Phys: Discharge: Date of : 54 Report #: [id number] quantification is not possible in this patient. His blood pressure is running about 139/91, respirations , pulse is 97. His INR is normal. His platelet count is 339. IMPRESSION: I had multiple discussions with the patient and the family. I reviewed the patient's films with the radiologist and discussed with him. Unfortunately, this patient has a large thrombus or embolus, which is occluding his left carotid artery. There are some collaterals, but very little. From history, it looks all new, but the question whether some was going on for some time and it has become worse is not clear. I went back and reviewed this patient's records and he did have a carotid Doppler done on 03/25/2017, and that did not show any hemodynamically significant stenosis indicating this may be all acute. This patient is in a very difficult situation where he is set up to have a large or a huge left hemispheric cerebrovascular accident and there is not much collateral and he does not have much reactive hypertension either. We talked about TPA, it is potential complication, higher rate of complication with the patient who has massive stroke-like this, possible complication related to his cancers. After discussing all of it, the patient was started on TPA and the patient was discussed with transfer team to emergently transfer him there for the thrombectomy if that can be accomplished. The situation is critical and unfortunately in spite of all the efforts many of this patients tube turner to have a huge left hemispheric cerebrovascular accident CVA, but I think we need to try to see if that can be somehow aborted. All of it was discussed with the patient's family in great detail and Dr. Sanchez and hopefully this patient will be transferred to [facility] soon where the family wanted the patient to go. <ELECTRONICALLY SIGNED> By: Judah Cerrato MD 09/18/172000 1041 1226 Judah Cerrato MD /nt
[2017-09-14 09:27] LABS: POC CA IONIZED 4.4 mg/dL (4.5-5.3); POC CREATININE 0.9 mg/dL (0.6-1.3); POC HEMOGLOBIN 11.9 g/dL (14.0-18.0); POC POTASSIUM 4.8 mmol/L (3.5-5.1)
[2017-09-14 09:54] LABS: HEMATOCRIT 34.2 % (42.0-52.0); HEMOGLOBIN 11.2 gm/dL (14.0-18.0); MCH 29.5 pg (26.0-34.0); MCHC 32.6 g/dL (28.0-37.0); MCV 90.3 fL (80.0-100.0); RBC 3.79 mil/uL (4.50-6.00); RDW 18.1 % (10.5-14.5); WBC 4.7 thou/uL (4.0-11.0)
[2017-09-14 09:57] LABS: ANION GAP 11 mmol/L (7-16); BUN 20 mg/dL (7-18); CALCIUM 8.6 mg/dL (8.5-10.1); CHLORIDE 97 mmol/L (98-107); CO2 26 mmol/L (21-32); CREATININE 1.1 mg/dL (0.7-1.3); GLUCOSE 257 mg/dL (74-106); POTASSIUM 5.1 mmol/L (3.5-5.1); SODIUM 134 mmol/L (136-145)
[2017-09-14 10:00] LABS: APTT 22.2 Seconds (24.5-32.8); PROTIME 10.9 Seconds (9.3-11.4)
[2017-09-14 10:01] LABS: INR 1.1
[2017-09-14 10:05] LABS: ALBUMIN 2.8 g/dL (3.4-5.0); MAGNESIUM 2.1 mg/dL (1.8-2.4); SGOT 19 U/L (15-37); SGPT 24 U/L (30-65); TOTAL BILIRUBIN 0.4 mg/dL (<0.1-1.0); TROPONIN-I < 0.04 ng/mL (<0.06)
[2017-09-14 10:50] VITALS: BP 152/90
== END ==
LOC: ER 09:01
PROVIDERS: Emergency Medicine
DX: I63.8 Other cerebral infarction (principal); R41.82 Altered mental status, unspecified; E10.65 Type 1 diabetes mellitus with hyperglycemia; N40.0 Benign prostatic hyperplasia without lower urinary tract symptoms; E78.5 Hyperlipidemia, unspecified; E10.319 Type 1 diabetes mellitus with unspecified diabetic retinopathy without macular edema; Z90.49 Acquired absence of other specified parts of digestive tract; Z88.6 Allergy status to analgesic agent; Z88.2 Allergy status to sulfonamides; Z87.891 Personal history of nicotine dependence